=== PATIENT | male | born 1985 | race Caucasian/White ===

== ENCOUNTER 2018-01-23 09:08 | Emergency (ER) | payer SELFPAY ==
--- NOTE | 2018-01-23 09:58 | EDM.PDOC ---
ED HPI GENERAL MEDICAL PROBLEM - General Chief Complaint: ENT Problem Stated Complaint: SINUS INFECTION/TOOTHACHE Time Seen by Provider: 01/23/18 09:27 Source of Information: Reports: Patient History Limitations: Reports: No Limitations - History of Present Illness INITIAL COMMENTS - FREE TEXT/NARRATIVE: The patient presents with right upper tooth pain. This has been going on for a few months. He just moved here from [place]. He was going to get that tooth pulled but he moved here and he now does not have dental insurance. He is now smelling a foul odor and having some pressure in the right side of his face. He has no fever but he does not feel right. 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 Right Upper Oral/Mouth Pain Score (Numeric/FACES): 5 - Related Data Allergies Allergy/AdvReac Type Severity Reaction Status Date / Time No Known Allergies Allergy Verified 01/23/18 09:18 Home Meds: Home Meds Penicillin V Potassium 500 mg PO Q6HR #40 tab 01/23/18 [Rx] Past Medical History - Past Surgical History Musculoskeletal Surgical History: Reports: Arthroscopic Knee Other Musculoskeletal Surgeries/Procedures:: hip surgery Social & Family History - Tobacco Use Smoking Status *Q: Current Every Day Smoker Years of Tobacco use: 15 Packs/Tins Daily: 1 - Caffeine Use Caffeine Use: Reports: Coffee - Recreational Drug Use Recreational Drug Use: No ED ROS ENT - Review of Systems Review Of Systems: See Below Constitutional: Reports: No Symptoms HEENT: Reports: Dental Pain Respiratory: Reports: No Symptoms Cardiovascular: Reports: No Symptoms Endocrine: Reports: No Symptoms GI/Abdominal: Reports: No Symptoms : Reports: No Symptoms ED EXAM, ENT - Physical Exam Exam: See Below Exam Limited By: No Limitations General Appearance: Alert, No Apparent Distress Ears: Normal External Exam Nose: Normal Inspection Mouth/Throat: Other (Pain upon palpation with erythema and edema to the right upper gum line) Course - Vital Signs Last Recorded V/S: Last Vital Signs Temp 99 F 01/23/18 09:19 Pulse 77 01/23/18 09:19 Resp 12 01/23/18 09:19 BP 141/98 H 06/04/18 09:19 Pulse Ox 100 01/23/18 09:19 Departure - Departure Time of Disposition: 10:00 Disposition: Home, Self-Care 01 Condition: Good Clinical Impression: Dental abscess - Discharge Information Prescriptions: Penicillin V Potassium 500 mg PO Q6HR #40 tab Referrals: PCP,None [Primary Care Provider] - Additional Instructions: Take the antibiotic as prescribed. Take motrin or tylenol for pain. Try to follow up with a dentist in town for definitive treatment such as a tooth extraction.
== END 2018-01-23 10:10 | disposition home or self-care (01) ==
LOC: JD.ED 09:08
DX: K04.7 Periapical abscess without sinus (principal); F17.210 Nicotine dependence, cigarettes, uncomplicated
CPT/HCPCS: 99283

== ENCOUNTER 2018-02-08 13:27 | Emergency (ER) | payer SELFPAY ==
--- NOTE | 2018-02-08 14:03 | EDM.PDOC ---
ED HPI GENERAL MEDICAL PROBLEM - General Chief Complaint: ENT Problem Stated Complaint: TOOTH ABCESS Time Seen by Provider: 02/08/18 13:42 Source of Information: Reports: Patient History Limitations: Reports: No Limitations - History of Present Illness INITIAL COMMENTS - FREE TEXT/NARRATIVE: Patient is a 32-year-old male presents ED complaining of right sided maxillofacial discomfort with increased nasal secretions. Nasal secretions have a followed are present. Occasional blood present. Complains of pain to the #2 tooth worse with chewing on the affected side. He was evaluated in the ED approximately 15 days ago diagnosed with tooth abscess placed on penicillin 10 day course. States symptoms have not drastically improved. Tooth pain has been going on for a few months. He just moved here from [place]. He was going to get that tooth pulled but he moved here and he now does not have dental insurance. He is now smelling a foul odor and having some pressure in the right side of his face. He has no fever but he does not feel right. He's been utilizing a 90 pot with increased nasal secretions noted. There's been no documented fever. He's been eating and drinking okay. 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 Smokes one pack of cigarettes per day. Alcohol use 2 times a week. No recreational drug use. No additional past medical history. Currently taking no other medications. Surgical history noncontributory. Right Oral/Mouth Pain Score (Numeric/FACES): 5 - Related Data Allergies Allergy/AdvReac Type Severity Reaction Status Date / Time No Known Allergies Allergy Verified 02/08/18 13:39 Home Meds: Home Meds Amoxicillin/Potassium Clav [Augmentin 875-125 Tablet] 1 each PO BID #20 tablet 02/08/18 [Rx] Past Medical History - Past Surgical History Musculoskeletal Surgical History: Reports: Arthroscopic Knee Other Musculoskeletal Surgeries/Procedures:: hip surgery Social & Family History - Caffeine Use Caffeine Use: Reports: Coffee ED ROS ENT - Review of Systems Review Of Systems: ROS reveals no pertinent complaints other than HPI. ED EXAM, ENT - Physical Exam Exam: See Below Exam Limited By: No Limitations General Appearance: Alert, WD/WN, No Apparent Distress Ears: Hearing Grossly Normal Nose: Normal Inspection, Normal Mucousa, No Blood Mouth/Throat: Normal Inspection, Normal Oropharynx, Other (Pain noted to the #2 tooth with direct pressure. Large portion of the tooth is missing after a cavity fell out. Gumline swelling.). No: Throat Pain, Throat Swelling, Tongue Swelling, Tonsillar Erythema, Tonsillar Exudates, Tonsillar Swelling, Trismus, Uvular Deviation Head: Atraumatic, Normocephalic Neck: Normal Inspection, Supple Respiratory/Chest: No Respiratory Distress, Lungs Clear, Normal Breath Sounds, No Accessory Muscle Use Cardiovascular: Normal Peripheral Pulses, Regular Rate, Rhythm Extremities: Normal Inspection Neurological: Alert, Oriented, CN II-XII Intact, Normal Cognition, No Motor/ Sensory Deficits Psychiatric: Normal Affect, Normal Mood Skin: Warm, Dry, Intact, Normal Color Course - Vital Signs Last Recorded V/S: Last Vital Signs Temp 99.2 F 02/08/18 13:37 Pulse 97 02/08/18 13:37 Resp 16 02/08/18 13:37 BP 137/108 H 02/08/18 13:37 Pulse Ox 97 02/08/18 13:37 - Orders/Labs/Meds Meds: Medications Discontinued Medications Generic Name Dose Route Start Last Admin Trade Name Maria Isabel PRN Reason Stop Dose Admin Amoxicillin/Clavulanate Potassium 1 tab 02/08/18 14:46 Augmentin 875 Mg/125 Mg PO 02/08/18 14:47 ONETIME ONE - Re-Assessments/Exams Free Text/Narrative Re-Assessment/Exam: Will order CT of the maxillofacial bones and sinuses. CT of the maxillofacial bones and sinuses revealed increased fluid within the right maxillary sinus with what appears to be base of the tooth protruding into the sinus cavity. Suspect this is the cause of infection. Final interpretation is pending. Previously on pen [email or web address] will start the patient on augmentin with instructions to see a oral surgeon FRANCISCO for definitive treatment. Augmentin ordered. Discharge instructions as documented. Departure - Departure Time of Disposition: 14:44 Disposition: Home, Self-Care 01 Condition: Good Clinical Impression: Dental abscess Sinusitis Qualifiers: Sinusitis location: maxillary Chronicity: subacute Qualified Code(s): J01.00 - Acute maxillary sinusitis, unspecified - Discharge Information Prescriptions: Amoxicillin/Potassium Clav [Augmentin 875-125 Tablet] 1 each PO BID #20 tablet Instructions: Sinusitis, Adult, [id number], Dental Abscess Referrals: PCP,None [Primary Care Provider] - Forms: ED Department Discharge Additional Instructions: Take the full course of Augmentin as prescribed. Utilize a [id number] probiotic as well. Take Tylenol and ibuprofen in alternating fashion for pain. Call and make an appointment with a oral surgeon or dentist for definitive treatment. The chronic sinusitis will not improve without pulling the tooth. Return to the ED if you develop any new or worsening symptoms.
[2018-02-08] MEDS ORDERED: Amoxicillin/Clavulanate K 875-125 MG Tab PO ONE (14:46)
--- NOTE | 2018-02-08 14:51 | CT ---
Paranasal sinuses Technique: Multiple axial sections through the paranasal sinuses were obtained. Reconstructed coronal and sagittal images were obtained. Intravenous contrast not utilized. Findings: Near-complete opacification of the right maxillary sinus is seen with probable small amount of fluid within this sinus. Scattered mucosal thickening is seen within the ethmoid sinuses. Minimal mucosal thickening is seen within the sphenoid and frontal sinuses. Minimal mucosal thickening is noted within the left maxillary sinus. No acute bony abnormality is seen. Impression: 1. Sinus findings as noted above. Small amount of fluid suggested within the right maxillary sinus raising the possibility of acute sinusitis. Diagnostic code #3
== END 2018-02-08 14:50 | disposition home or self-care (01) ==
LOC: JD.ED 13:27
DX: K04.7 Periapical abscess without sinus (principal); J01.00 Acute maxillary sinusitis, unspecified
CPT/HCPCS: 70486; 99284; A9270; 99283

== ENCOUNTER 2018-05-15 07:53 | Emergency (ER) | payer BC, OTHER ==
[2018-05-15] MEDS ORDERED: LORazepam 2 MG/ML SDV IVPUSH ONE (08:25)
[2018-05-15] MEDS ORDERED: Sodium Chloride 0.9% 10 ML Syringe FLUSH PRN (08:25)
[2018-05-15] MEDS ORDERED: Sodium Chloride 0.9% 1,000 ML IV SCH (08:30)
[2018-05-15] MEDS ORDERED: LORazepam 1 MG Tab PO ONE (09:21)
--- NOTE | 2018-05-15 09:21 | EDM.PDOC ---
ED HPI GENERAL MEDICAL PROBLEM - General Chief Complaint: Drug or Alcohol Abuse Stated Complaint: HEART PALPITATION Time Seen by Provider: 05/15/18 08:09 Source of Information: Reports: Patient, RN Notes Reviewed - History of Present Illness INITIAL COMMENTS - FREE TEXT/NARRATIVE: 32-year-old male comes in with anterior chest tightness, palpitations. He does admit to doing meth last evening into the early hours of this morning and also did drink about a pint of rum. He does drink alcohol regularly so that was nothing different for him but states that he has not "done meth before.. He has had difficulty getting to sleep. He states his heart is "pounding and also noticing some irregularity type palpitations. He does not feel short of breath. He denies abdominal pain nausea or vomiting. He has no known history for hypertension diabetes or known heart disease. Chest Pain Score (Numeric/FACES): 3 - Related Data Allergies Allergy/AdvReac Type Severity Reaction Status Date / Time No Known Allergies Allergy Verified 05/15/18 08:05 Home Meds: Home Meds . [No Known Home Meds] 05/15/18 [History] Past Medical History - Past Surgical History Musculoskeletal Surgical History: Reports: Arthroscopic Knee Other Musculoskeletal Surgeries/Procedures:: hip surgery Social & Family History - Tobacco Use Smoking Status *Q: Current Every Day Smoker Years of Tobacco use: 14 Packs/Tins Daily: 1 - Caffeine Use Caffeine Use: Reports: None - Recreational Drug Use Recreational Drug Use: Yes Drug Use in Last 12 Months: Yes Recreational Drug Type: Reports: Methamphetamine ED ROS GENERAL - Review of Systems Review Of Systems: See Below Constitutional: Denies: Fever, Chills, Diaphoresis HEENT: Reports: No Symptoms Respiratory: Reports: Shortness of Breath (Mild). Denies: Cough, Hemoptysis Cardiovascular: Reports: Chest Pain (Mild anterior tightness) GI/Abdominal: Denies: Abdominal Pain, Nausea, Vomiting Musculoskeletal: Denies: Neck Pain, Shoulder Pain, Arm Pain, Back Pain Skin: Reports: No Symptoms Neurological: Reports: Dizziness. Denies: Numbness (Mild), Tingling ED EXAM, GENERAL - Physical Exam Exam: See Below General Appearance: Alert, Anxious Eye Exam: Bilateral Eye: PERRL Throat/Mouth: Normal Inspection, Normal Oropharynx Head: Atraumatic. No: Facial Swelling Neck: Supple, Full Range of Motion Respiratory/Chest: No Respiratory Distress, Lungs Clear, Normal Breath Sounds Cardiovascular: Regular Rate, Rhythm GI/Abdominal: Soft, Non-Tender Back Exam: No: CVA Tenderness (L), CVA Tenderness (R) Extremities: Normal Inspection, Normal Range of Motion. No: Pedal Edema, Leg Pain Neurological: Alert, Oriented, No Motor/Sensory Deficits Skin Exam: Warm, Dry, Normal Color EKG INTERPRETATION EKG Date: 05/15/18 Rhythm: NSR [place]: Normal P-Wave: Present QRS: Other (Multiple PVCs noted) ST-T: Normal Course - Vital Signs Last Recorded V/S: Last Vital Signs Temp 99.5 F 05/15/18 08:01 Pulse 106 H 05/15/18 09:30 Resp 23 H 05/15/18 09:30 BP 161/108 H 05/15/18 09:30 Pulse Ox 99 05/15/18 09:30 - Orders/Labs/Meds Orders: Active Orders 24 hr Category Date Time Status EKG 12 Lead [EKG Documentation Completion] [RC] STAT Care 05/15/18 08:24 Active Peripheral IV Care [RC] . DIRECTED Care 05/15/18 08:26 Active Peripheral IV Insertion Adult [OM.PC] Stat Oth 05/15/18 08:25 Ordered Labs: Laboratory Tests 05/15/18 05/15/18 Range/Units 08:30 08:30 WBC 9.52 H (4.23-9.07) K/mm3 RBC 4.67 (4.63-6.08) M/mm3 Hgb 15.0 (13.7-17.5) gm/L Hct 42.3 (40.1-51.0) % MCV 90.6 (79.0-92.2) fl MCH 32.1 (25.7-32.2) pg MCHC 35.5 (32.2-35.5) g/dl RDW Std Deviation 43.2 (35.1-43.9) fL Plt Count 257 (163-337) K/mm3 MPV 10.7 (9.4-12.3) fl Neut % (Auto) 58.7 (34.0-67.9) % Lymph % (Auto) 32.2 (21.8-53.1) % [place] % (Auto) 7.4 (5.3-12.2) % Eos % (Auto) 0.9 (0.8-7.0) Baso % (Auto) 0.7 (0.1-1.2) % Neut # (Auto) 5.58 H (1.78-5.38) K/mm3 Lymph # (Auto) 3.07 (1.32-3.57) K/mm3 [place] # (Auto) 0.70 (0.30-0.82) K/mm3 Eos # (Auto) 0.09 (0.04-0.54) K/mm3 Baso # (Auto) 0.07 (0.01-0.08) K/mm3 Sodium 136 (136-145) mEq/L Potassium 3.4 L (3.5-5.1) mEq/L Chloride 99 (98-107) mEq/L Carbon Dioxide 24 (21-32) mEq/L Anion Gap 16.4 H (5-15) BUN 9 (7-18) mg/dL Creatinine 0.9 (0.7-1.3) mg/dL Est Cr Clr Drug Dosing 122.79 mL/min Estimated GFR (MDRD) > 60 (>60) mL/min BUN/Creatinine Ratio 10.0 L (14-18) Glucose 86 (74-106) mg/dL Calcium 9.0 (8.5-10.1) mg/dL Total Bilirubin 0.6 (0.2-1.0) mg/dL AST 82 H (15-37) U/L ALT 107 H (16-63) U/L Alkaline Phosphatase 57 (46-116) U/L Total Protein 7.6 (6.4-8.2) g/dl Albumin 4.3 (3.4-5.0) g/dl Globulin 3.3 gm/dL Albumin/Globulin Ratio 1.3 (1-2) Meds: Medications Discontinued Medications Generic Name Dose Route Start Last Admin Trade Name Freq PRN Reason Stop Dose Admin Sodium Chloride 1,000 mls @ 999 mls/hr 05/15/18 08:30 05/15/18 08:35 Normal Saline IV 999 mls/hr ONETIME RENATE Administration Lorazepam 1 mg 05/15/18 08:25 05/15/18 08:38 Ativan IVPUSH 05/15/18 08:26 Not Given ONETIME ONE Lorazepam 1 mg 05/15/18 09:21 05/15/18 09:31 Ativan PO 05/15/18 09:22 1 mg ONETIME ONE Administration Sodium Chloride 10 ml 05/15/18 08:25 05/15/18 08:35 Saline Flush FLUSH 10 ml ASDIRECTED PRN Administration Keep Vein Open - Re-Assessments/Exams Free Text/Narrative Re-Assessment/Exam: 05/15/18 14:25 Patient did have some continued PVCs initially but those did subside with rest time in 1 L IV fluid. Labs did come back relatively normal. He also much better after receiving the 1 L of IV fluid, send 1 mg Ativan home with him to take once he does get home. He is driving so this was withheld while here in the emergency department. Departure - Departure Time of Disposition: :18 Disposition: Home, Self-Care 01 Condition: Fair Clinical Impression: Heart palpitations Instructions: Palpitations, [id number] Referrals: PCP,None [Primary Care Provider] - Additional Instructions: We are sending 1 mg Ativan home with you take once you do get home, then no driving recommended for the next 8 hours, continue to drink plenty of water today to restore hydration. Follow-up clinic as needed, return to ED as needed - My Orders Last 24 Hours: My Active Orders 05/15/18 08:24 EKG 12 Lead [EKG Documentation Completion] [RC] STAT 05/15/18 08:25 Peripheral IV Insertion Adult [OM.PC] Stat 05/15/18 08:26 Peripheral IV Care [RC] . DIRECTED - Assessment/Plan Last 24 Hours: My Active Orders 05/15/18 08:24 EKG 12 Lead [EKG Documentation Completion] [RC] STAT 05/15/18 08:25 Peripheral IV Insertion Adult [OM.PC] Stat 05/15/18 08:26 Peripheral IV Care [RC] . DIRECTED
== END 2018-05-15 09:34 | disposition home or self-care (01) ==
LOC: JD.ED 07:53
DX: R00.2 Palpitations (principal); F17.210 Nicotine dependence, cigarettes, uncomplicated
CPT/HCPCS: 36415; 80053; 85025; 93005; 96360; 99285; A9270; J7040; J7050; 93010; 99284-25

== ENCOUNTER 2019-08-23 01:04 | Emergency (ER) | payer BC ==
--- NOTE | 2019-08-23 01:10 | EDM.PDOC ---
ED HPI GENERAL MEDICAL PROBLEM - General Chief Complaint: Neurological Problem Stated Complaint: [facility] Time Seen by Provider: 08/23/19 01:10 - History of Present Illness INITIAL COMMENTS - FREE TEXT/NARRATIVE: 33-year-old male presents the emergency room brought in by EMS after having what sounds like a seizure-like activity at home. This occurred just prior to arrival patient has no history of seizure problems in the past. However he was diagnosed with a subarachnoid cyst many years ago and he has not had follow-up on this. He was told he could cause him problems down the road. Patient denies any drugs or alcohol. Patient states he was feeling pretty good today. Patient denies any other medical problems or conditions. Patient's described it as the patient was doing some on his phone while lying down in bed and then his arm straightened out became quite rigid his eyes rolled back and he had some generalized shaking and he turned purple, this lasted about a minute resolved on its own he was postictal for a time no loss of bowel or bladder control. - Related Data Allergies Allergy/AdvReac Type Severity Reaction Status Date / Time avocado Allergy Itching Verified 08/23/19 01:11 watermelon Allergy Itching Verified 08/23/19 01:11 Home Meds: Home Meds buPROPion [buPROPion XL] 300 mg PO DAILY 08/23/19 [History] levETIRAcetam [Roweepra] 500 mg PO Q12H #60 tablet 08/23/19 [Rx] Past Medical History - Past Surgical History Musculoskeletal Surgical History: Reports: Arthroscopic Knee Other Musculoskeletal Surgeries/Procedures:: hip surgery Social & Family History - Caffeine Use Caffeine Use: Reports: None ED ROS GENERAL - Review of Systems Review Of Systems: See Below Constitutional: Reports: No Symptoms HEENT: Reports: No Symptoms Respiratory: Reports: No Symptoms Cardiovascular: Reports: No Symptoms Endocrine: Reports: No Symptoms GI/Abdominal: Reports: No Symptoms : Reports: No Symptoms Musculoskeletal: Reports: No Symptoms Skin: Reports: No Symptoms Neurological: Reports: No Symptoms Psychiatric: Reports: No Symptoms - Physical Exam Exam: See Below Exam Limited By: No Limitations General Appearance: Alert, No Apparent Distress, Other EKG INTERPRETATION EKG Date: 08/23/19 Rhythm: NSR Rate (Beats/Min): 101 Twain: LAD-Left Twain Deviation P-Wave: Present QRS: Other (Intraventricular conduction delay) ST-T: Normal (To be noted string she is not a good look at them) QT: Normal Comparison: NA - No Prior EKG EKG Interpretation Comments: Abnormal Course - Vital Signs Last Recorded V/S: Last Vital Signs Temp 36.8 C 08/23/19 01:07 Pulse 117 H 08/23/19 02:11 Resp 19 08/23/19 01:07 BP 141/98 H 08/23/19 02:11 Pulse Ox 96 08/23/19 01:07 - Orders/Labs/Meds Orders: Active Orders 24 hr Category Date Time Status EKG 12 Lead [EKG Documentation Completion] [RC] STAT Care 08/23/19 02:43 Active EKG Documentation Completion [RC] STAT Care 08/23/19 01:12 Active Head wo Cont [CT] Stat Exams 08/23/19 01:13 Taken Lactated Ringers [Ringers, Lactated] 1,000 ml Med 08/23/19 02:00 Active IV ASDIRECTED Medication Orders Lactated Ringer's (Ringers, Lactated) 1,000 mls @ 125 mls/hr IV ASDIRECTED RENATE Last Admin: 08/23/19 01:57 Dose: 125 mls/hr Labs: Laboratory Tests 08/23/19 08/23/19 08/23/19 Range/Units 01:25 01:25 02:52 WBC 10.45 H (4.23-9.07) K/mm3 RBC 4.27 L (4.63-6.08) M/mm3 Hgb 13.5 L D (13.7-17.5) gm/dl Hct 39.0 L (40.1-51.0) % MCV 91.3 (79.0-92.2) fl MCH 31.6 (25.7-32.2) pg MCHC 34.6 (32.2-35.5) g/dl RDW Std Deviation 42.3 (35.1-43.9) fL Plt Count 303 (163-337) K/mm3 MPV 10.8 (9.4-12.3) fl Neutrophils % (Manual) 59 (40-60) % Band Neutrophils % 0 (0-10) % Lymphocytes % (Manual) 30 (20-40) % Atypical Lymphs % 0 % Monocytes % (Manual) 8 (2-10) % Eosinophils % (Manual) 3 (0.8-7.0) % Basophils % (Manual) 0 L (0.2-1.2) Platelet Estimate Adequate RBC Morph Comment Normal Sodium 140 (136-145) mEq/L Potassium 4.0 (3.5-5.1) mEq/L Chloride 104 (98-107) mEq/L Carbon Dioxide 26 (21-32) mEq/L Anion Gap 14.0 (5-15) BUN 23 H (7-18) mg/dL Creatinine 1.0 (0.7-1.3) mg/dL Est Cr Clr Drug Dosing 109.50 mL/min Estimated GFR (MDRD) > 60 (>60) mL/min BUN/Creatinine Ratio 23.0 H (14-18) Glucose 118 H (74-106) mg/dL Calcium 8.3 L (8.5-10.1) mg/dL Total Bilirubin 0.3 (0.2-1.0) mg/dL AST 20 (15-37) U/L ALT 35 (16-63) U/L Alkaline Phosphatase 61 (46-116) U/L Total Protein 6.8 (6.4-8.2) g/dl Albumin 3.6 (3.4-5.0) g/dl Globulin 3.2 gm/dL Albumin/Globulin Ratio 1.1 (1-2) Urine Color Yellow (Yellow) Urine Appearance Slt cloudy H (Clear) Urine pH 6.0 (5.0-8.0) Ur Specific [place] 1.025 (1.005-1.030) Urine Protein Negative (Negative) Urine Glucose (UA) Negative (Negative) Urine Ketones Negative (Negative) Urine Occult Blood Negative (Negative) Urine Nitrite Negative (Negative) Urine Bilirubin Negative (Negative) Urine Urobilinogen 0.2 (0.2-1.0) Ur Leukocyte Esterase Negative (Negative) Urine RBC 0-5 (0-5) /hpf Urine WBC 0-5 (0-5) /hpf Ur Epithelial Cells Not seen (0-5) /hpf Urine Bacteria Not seen (FEW) /hpf Urine Mucus Not seen (FEW) /hpf Urine Opiates Screen (YIJXAN=620) Ur Buprenorphine Scrn (CUTOFF=10) Ur Oxycodone Screen (OTD9EW=421) Urine Methadone Screen (EUT3FJ=279) Ur Propoxyphene Screen (IMXSYX=702) Ur Barbiturates Screen (RZJKJE=678) Ur Tricyclics Screen (HURLSO=686) Ur Phencyclidine Scrn (CUTOFF=25) Ur Amphetamine Screen (FHHQWY=135) U Methamphetamines Scrn (RPPDTP=686) U Benzodiazepines Scrn (AKFLHU=802) U Cocaine Metab Screen (LGDHLG=714) U Marijuana (THC) Screen (CUTOFF=50) Ethyl Alcohol 0.00 (0.00) gm% 08/23/19 Range/Units 02:52 WBC (4.23-9.07) K/mm3 RBC (4.63-6.08) M/mm3 Hgb (13.7-17.5) gm/dl Hct (40.1-51.0) % MCV (79.0-92.2) fl MCH (25.7-32.2) pg MCHC (32.2-35.5) g/dl RDW Std Deviation (35.1-43.9) fL Plt Count (163-337) K/mm3 MPV (9.4-12.3) fl Neutrophils % (Manual) (40-60) % Band Neutrophils % (0-10) % Lymphocytes % (Manual) (20-40) % Atypical Lymphs % % Monocytes % (Manual) (2-10) % Eosinophils % (Manual) (0.8-7.0) % Basophils % (Manual) (0.2-1.2) Platelet Estimate RBC Morph Comment Sodium (136-145) mEq/L Potassium (3.5-5.1) mEq/L Chloride (98-107) mEq/L Carbon Dioxide (21-32) mEq/L Anion Gap (5-15) BUN (7-18) mg/dL Creatinine (0.7-1.3) mg/dL Est Cr Clr Drug Dosing mL/min Estimated GFR (MDRD) (>60) mL/min BUN/Creatinine Ratio (14-18) Glucose (74-106) mg/dL Calcium (8.5-10.1) mg/dL Total Bilirubin (0.2-1.0) mg/dL AST (15-37) U/L ALT (16-63) U/L Alkaline Phosphatase (46-116) U/L Total Protein (6.4-8.2) g/dl Albumin (3.4-5.0) g/dl Globulin gm/dL Albumin/Globulin Ratio (1-2) Urine Color (Yellow) Urine Appearance (Clear) Urine pH (5.0-8.0) Ur Specific [place] (1.005-1.030) Urine Protein (Negative) Urine Glucose (UA) (Negative) Urine Ketones (Negative) Urine Occult Blood (Negative) Urine Nitrite (Negative) Urine Bilirubin (Negative) Urine Urobilinogen (0.2-1.0) Ur Leukocyte Esterase (Negative) Urine RBC (0-5) /hpf Urine WBC (0-5) /hpf Ur Epithelial Cells (0-5) /hpf Urine Bacteria (FEW) /hpf Urine Mucus (FEW) /hpf Urine Opiates Screen Negative (EXKTRI=762) Ur Buprenorphine Scrn Negative (CUTOFF=10) Ur Oxycodone Screen Negative (FXB1CC=649) Urine Methadone Screen Negative (XVS8WI=326) Ur Propoxyphene Screen Negative (UOAGSS=890) Ur Barbiturates Screen Negative (CDFYJR=824) Ur Tricyclics Screen Negative (TYEVZJ=657) Ur Phencyclidine Scrn Negative (CUTOFF=25) Ur Amphetamine Screen Negative (ZLJDUT=120) U Methamphetamines Scrn Negative (ULRPZF=088) U Benzodiazepines Scrn Negative (NTJHTM=068) U Cocaine Metab Screen Negative (IXCABE=735) U Marijuana (THC) Screen Negative (CUTOFF=50) Ethyl Alcohol (0.00) gm% Meds: Medications Generic Name Dose Route Start Last Admin Trade Name Freq PRN Reason Stop Dose Admin Lactated Ringer's 1,000 mls @ 125 mls/hr 08/23/19 02:00 08/23/19 01:57 Ringers, Lactated IV 125 mls/hr ASDIRECTED RENATE Administration Discontinued Medications Generic Name Dose Route Start Last Admin Trade Name Freq PRN Reason Stop Dose Admin Levetiracetam 1,000 mg/ Sodium 110 mls @ 400 mls/hr 08/23/19 05:20 08/23/19 05:31 Chloride IV 08/23/19 05:34 400 mls/hr ONETIME ONE Administration Lorazepam 1 mg 08/23/19 01:14 08/23/19 01:38 Ativan IVPUSH 08/23/19 01:15 1 mg ONETIME ONE Administration Metoprolol Tartrate 5 mg 08/23/19 01:50 08/23/19 02:11 Lopressor IVPUSH 08/23/19 01:51 5 mg ONETIME ONE Administration - Re-Assessments/Exams Free Text/Narrative Re-Assessment/Exam: 08/23/19 05:57 The patient has done well in her emergency department he received 1 mg of Ativan and has not had any more seizures. Patient's case was discussed with Dr. Rashid neurologist at [facility] in [place] and he recommended actually loading the mumtaz up with Keppra thousand milligrams and then starting 500 mg twice daily he would like to see the patient in 4 to 6 weeks and request that we get a MRI of the brain with and without contrast. I did discuss the arachnoid cyst seen on the CT with Dr. Rashid. The patient has a known for quite some time of this arachnoid cyst and has been told in the past that it could cause some trouble for him. I have discussed discharge plans with the patient and he agrees to follow-up and take the medications as directed. Departure - Departure Time of Disposition: 05:59 Disposition: Home, Self-Care 01 Clinical Impression: Generalized convulsive seizures - Discharge Information Prescriptions: levETIRAcetam [Roweepra] 500 mg PO Q12H #60 tablet Referrals: Dona Pedraza MD [Primary Care Provider] - Forms: ED Department Discharge Additional Instructions: Return to the emergency room with any questions problems or worsening symptoms. Take the Keppra 1 twice daily as directed I given you enough for 1 month +1 refill. Follow-up with neurology at [facility] in [place]. I discussed your case with Dr. Rashid he recommends you get seen in 4 to 6 weeks. You will be notified from this hospital on what time to come back for your MRI. Do not drive until you are approved to do so. Sepsis Event Note - Focused Exam Vital Signs: Vital Signs Temp Pulse Pulse Resp BP BP Pulse Ox 08/23/19 02:11 117 H 141/98 H 08/23/19 01:07 36.8 C 120 H 19 143/91 H 96 Date Exam was Performed: 08/23/19 Time Exam was Performed: 05:57 - My Orders Last 24 Hours: My Active Orders 08/23/19 01:12 EKG Documentation Completion [RC] STAT 08/23/19 01:13 Head wo Cont [CT] Stat 08/23/19 02:00 Lactated Ringers [Ringers, Lactated] 1,000 ml IV ASDIRECTED 08/23/19 02:43 EKG 12 Lead [EKG Documentation Completion] [RC] STAT - Assessment/Plan Last 24 Hours: My Active Orders 08/23/19 01:12 EKG Documentation Completion [RC] STAT 08/23/19 01:13 Head wo Cont [CT] Stat 08/23/19 02:00 Lactated Ringers [Ringers, Lactated] 1,000 ml IV ASDIRECTED 08/23/19 02:43 EKG 12 Lead [EKG Documentation Completion] [RC] STAT
[2019-08-23] MEDS ORDERED: LORazepam 2 MG/ML SDV IVPUSH ONE (01:14)
[2019-08-23] MEDS ORDERED: Metoprolol Tartrate 5 MG/5 ML SDV IVPUSH ONE (01:50)
[2019-08-23] MEDS ORDERED: Lactated Ringers 1,000 ML IV SCH (02:00)
[2019-08-23] MEDS ORDERED: levETIRAcetam 1,000 MG in Sodium Chloride 0.9% 100 ML IV ONE (05:20)
--- NOTE | 2019-08-23 07:25 | CT ---
Head CT Technique: Multiple axial sections through the brain were obtained. Intravenous contrast was not utilized. Comparison: No prior intracranial imaging is available. Findings: Low density lesion is noted within the anterior left temporal fossa measuring 5.1 cm x 3.6 cm. This has low density of CSF and is felt compatible with arachnoid cyst. Ventricles along with basal cisterns and sulci over the convexities are within normal limits for the patient's age. No abnormal parenchymal densities are seen. No evidence of intracranial hemorrhage. No midline shift or mass effect is seen. Visualized mastoid sinuses show nothing acute. Visualized paranasal sinuses show nothing acute. No acute calvarial abnormality is appreciated. Impression: 1. Low density finding within the anterior left temporal fossa compatible with retention cyst as measured above. This is usually considered a normal variant. 2. No acute intracranial abnormality is identified. Diagnostic code #2 This report was dictated in [place] Standard Time I agree with preliminary report from [facility], finalized on 08/23/19, 4:04 AM Central Time
== END 2019-08-23 06:15 | disposition home or self-care (01) ==
LOC: JD.ED 01:04
DX: R56.9 Unspecified convulsions (principal); Z91.018 Allergy to other foods; Z79.899 Other long term (current) drug therapy
CPT/HCPCS: 36415; 70450; 80053; 80306; 80320; 81001; 85007; 85027; 93005; 96361; 96365; 96375; 99285; J1953; J2060; J3490; J7050; J7120; 93010; 99281; G0480

== ENCOUNTER 2019-11-19 12:19 | Emergency (ER) | payer BC ==
--- NOTE | 2019-11-19 13:18 | EDM.PDOC ---
ED HPI GENERAL MEDICAL PROBLEM - General Chief Complaint: Respiratory Problem Stated Complaint: FEVER/HEADACHE/STIFF NECK Time Seen by Provider: 11/19/19 12:39 Source of Information: Reports: Patient History Limitations: Reports: No Limitations - History of Present Illness INITIAL COMMENTS - FREE TEXT/NARRATIVE: Mr. Celis is a very pleasant 34-year-old man with a past medical history significant for a possible seizure disorder, suffering what was likely a single generalized tonic-clonic seizure in August. He was seen in this ED and started on Keppra. He then followed up with a Neurologist in [place], however , because he was already on Keppra, no EEG was performed. An MRI of his brain was unremarkable. The patient remains on Keppra. The patient has a history of polysubstance abuse, however, and has been on high-dose kratom for many years; please note that high-dose kratom can itself cause seizures. The patient now presents to the ED stating that he developed a fever and headache since , 11/15/2019, with a T-max of 104.5 degrees on Tuesday, . He has had diaphoresis when his fever breaks. He states that he developed a stiff neck, left hip pain, and bilateral knee pain on Tuesday, 2019 or 11/17/2019. He states that he has been taking Aleve, which has helped. The patient states that both he and his had transient tingling numbness of his tongue last week, but none since. Otherwise, he denies recent rhinorrhea, sinus pressure, sore throat, ear pain, cough, dyspnea, chest pain, palpitations , nausea, vomiting, constipation, diarrhea, abdominal pain, urinary symptoms, recent weight gain or weight loss, recent bloody bowel movements or black bowel movements, or rashes. The patient is concerned, because he was exposed to a coworker who tested positive for COVID-19. He states that he went to the walk-in clinic on Tuesday , 11/16/2019, where he was tested for both influenza and COVID-19, both of which returned negative. The patient states that he took acetaminophen this morning. Here in the ED, the patient is found to be hemodynamically stable, slightly hypothermic at 36 degrees, saturating 98% on room air. The patient's PCP is Dona Pedraza NP. He does not recall the name of his neurologist, at [facility]. He received an influenza vaccine this season. 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) Neurological History: Reports: Seizure (one, in Aug 2019) Psychiatric History: Reports: Addiction (polysubstance) - Past Surgical History Musculoskeletal Surgical History: Reports: Arthroscopic Knee (right), Other ( See Below) (Left hip pinning) Social & Family History - Family History Cardiac: Reports: Heart Failure Neurological: Reports: CVA, Seizure, Other (See Below) Other Neurological Family History: father Brain tumor; brain CA; CVA at 59 - Tobacco Use Smoking Status *Q: Current Every Day Smoker Tobacco Use Within Last Twelve Months: Smokeless Tobacco (Chews 4 packets per day) Years of Tobacco use: 15 Packs/Tins Daily: 0.1 Packs/Tins Daily Comment: Down from 1 ppd - Caffeine Use Caffeine Use: Reports: Coffee, Energy Drinks - Alcohol Use Alcohol Use History: Yes Date/Time of Last Drink Comment: Quit Jul 2019 due to excess - Recreational Drug Use Recreational Drug Use: Yes Drug Use in Last 12 Months: Yes Recreational Drug Type: Reports: Heroin (last injected early ), LSD (Acid) ( last took 2017), Marijuana/Hashish (last smoked Sep 2019), Methamphetamine ( last snorted Mar 2019), Psilocybin (Mushrooms) (last took 2017), Other (see below) (DMT = a plant-based psychedellic drug, last took 2017. Takes kratom 100 g/day.) - Living Situation & Occupation Living situation: Reports: , with Spouse, with Family (Daughter) Occupation: Employed (steel welder) ED ROS GENERAL - Review of Systems Review Of Systems: Comprehensive ROS is negative, except as noted in HPI. ED EXAM, GENERAL - Physical Exam Exam: See Below Exam Limited By: No Limitations General Appearance: Alert, WD/WN, No Apparent Distress Eye Exam: Bilateral Eye: EOMI, Normal Inspection Ears: Normal External Exam, Normal Canal, Hearing Grossly Normal, Normal TMs Nose: Normal Inspection, Normal Mucosa, No Blood Throat/Mouth: Normal Inspection, Normal Lips, Normal Teeth, Normal Gums, Normal Oropharynx, Normal Voice, No Airway Compromise Head: Atraumatic, Normocephalic Neck: Normal Inspection, Supple, Non-Tender, Full Range of Motion. No: Lymphadenopathy (L), Lymphadenopathy (R) Respiratory/Chest: No Respiratory Distress, Lungs Clear, Normal Breath Sounds, No Accessory Muscle Use Cardiovascular: Normal Peripheral Pulses, Regular Rate, Rhythm, No Edema, No Gallop, No JVD, No Murmur, No Rub Peripheral Pulses: 4+: Radial (L), Radial (R) GI/Abdominal: Normal Bowel Sounds, Soft, Non-Tender, No Organomegaly, No Distention, No Abnormal Bruit, No Mass (Male) Exam: Deferred Rectal (Males) Exam: Deferred Back Exam: Normal Inspection, Full Range of Motion, NT Extremities: Normal Inspection, Normal Range of Motion, No Pedal Edema, Normal Capillary Refill Neurological: Alert, Oriented, CN II-XII Intact, Normal Cognition, No Motor/ Sensory Deficits Psychiatric: Normal Affect Skin Exam: Warm, Dry, Intact, Normal Color, No Rash Course - Vital Signs Last Recorded V/S: Last Vital Signs Temp 37.0 C 11/19/19 17:49 Pulse 80 11/19/19 17:49 Resp 18 11/19/19 17:49 BP 126/86 11/19/19 17:49 Pulse Ox 98 11/19/19 17:49 - Orders/Labs/Meds Labs: Laboratory Tests 11/19/19 11/19/19 11/19/19 Range/Units 13:25 13:25 13:25 WBC 9.35 H (4.23-9.07) K/mm3 RBC 4.04 L (4.63-6.08) M/mm3 Hgb 12.8 L (13.7-17.5) gm/dl Hct 38.2 L (40.1-51.0) % MCV 94.6 H D (79.0-92.2) fl MCH 31.7 (25.7-32.2) pg MCHC 33.5 (32.2-35.5) g/dl RDW Std Deviation 44.0 H (35.1-43.9) fL Plt Count 270 (163-337) K/mm3 MPV 11.3 (9.4-12.3) fl Neutrophils % (Manual) 75 H (40-60) % Band Neutrophils % 0 (0-10) % Lymphocytes % (Manual) 10 L (20-40) % Atypical Lymphs % 0 % Monocytes % (Manual) 12 H (2-10) % Eosinophils % (Manual) 2 (0.8-7.0) % Basophils % (Manual) 1 (0.2-1.2) Platelet Estimate Adequate RBC Morph Comment Normal Sodium 140 (136-145) mEq/L Potassium 4.3 (3.5-5.1) mEq/L Chloride 103 (98-107) mEq/L Carbon Dioxide 26 (21-32) mEq/L Anion Gap 15.3 H (5-15) BUN 14 (7-18) mg/dL Creatinine 0.8 (0.7-1.3) mg/dL Est Cr Clr Drug Dosing 135.61 mL/min Estimated GFR (MDRD) > 60 (>60) mL/min BUN/Creatinine Ratio 17.5 (14-18) Glucose 102 (74-106) mg/dL Calcium 8.5 (8.5-10.1) mg/dL Magnesium 1.9 (1.8-2.4) mg/dl Ferritin 379 (26-388) ng/ml Total Bilirubin 0.4 (0.2-1.0) mg/dL AST 25 (15-37) U/L ALT 33 (16-63) U/L Alkaline Phosphatase 70 (46-116) U/L Lactate Dehydrogenase 174 (85-227) U/L C-Reactive Protein 22.3 H* (<1.0) mg/dL Total Protein 6.9 (6.4-8.2) g/dl Albumin 3.0 L (3.4-5.0) g/dl Globulin 3.9 gm/dL Albumin/Globulin Ratio 0.8 L (1-2) - Re-Assessments/Exams Free Text/Narrative Re-Assessment/Exam: 11/19/19 13:11 As above, the patient presents with 4 days of fever, a headache, a stiff neck, and arthralgias. No history of cough or diaphoresis, and the patient's oxygen saturation here in the ED is 98% on room air. Because the patient was exposed to a coworker who tested positive for COVID-19, the patient is concerned that he may be infected with that, or influenza, however, his symptoms are not really consistent with either disease, and he tested negative for both 2 days ago. His physical exam today is completely benign. I have ordered a work-up that includes blood work and a chest x-ray. 11/19/19 13:58 Two-view chest radiograph appears to be grossly normal. The cardiac silhouette is within normal limits. No pulmonary vascular congestion. No pleural effusions. No focal infiltrate. No pneumothorax. Formal read per the Radiologist pending. 11/19/19 17:31 The patient's CBC is remarkable for a WBC count slightly elevated at 9.35, but with 0% bandemia. His H/H is slightly decreased at 12.8/38.2, with the remainder of his CBC being unremarkable. His CMP is remarkable for an anion gap slightly elevated at 15.3, but with a bicarbonate normal at 26. The remainder of his CMP is unremarkable. His magnesium level is within normal limits at 1.9. His CRP is elevated at 22.3. His LDH is within normal limits at 174. His ferritin is within normal limits at 379. Based on the above, the patient is most likely suffering from a viral illness. COVID-19 is possible, but unlikely, and as above, the patient does not meet current criterion for testing. I will discharge him home. Departure - Departure Time of Disposition: 17:32 Disposition: Home, Self-Care 01 Condition: Good Clinical Impression: Viral illness - Discharge Information *PRESCRIPTION DRUG MONITORING PROGRAM REVIEWED*: Not Applicable *COPY OF PRESCRIPTION DRUG MONITORING REPORT IN PATIENT RICHI: Not Applicable Instructions: Viral Illness, Adult Referrals: Dona Pedraza MD [Primary Care Provider] - Forms: ED Department Discharge, ED Return to Work/School Form Additional Instructions: You were seen in the emergency room for 4 days of fever, headache, stiff neck, with pain in your left hip and both knees. Work-up in the ER included blood work and a chest x-ray, all of which was unremarkable. Based on your history, physical exam, and ER tests, you are most likely suffering from a viral illness. As discussed, it is possible that you have COVID-19, but unlikely. Unfortunately, you did not meet criterion to test for COVID-19. We recommend that you get plenty of rest and stay adequately hydrated. As discussed, the routine treatment of fever is no longer recommended, however, you may take [id number] Tylenol as needed for discomfort of fever. A note to return to work on 11/26/2019 has been provided. If any other problems, please do not hesitate to return to the ER. Sepsis Event Note - Evaluation Sepsis Screening Result: No Definite Risk - Focused Exam Vital Signs: Vital Signs Temp Pulse Resp BP Pulse Ox 11/19/19 17:49 37.0 C 80 18 126/86 98 11/19/19 12:29 36.0 C L 90 20 127/93 H 98 Date Exam was Performed: 11/19/19 Time Exam was Performed: 19:16
--- NOTE | 2019-11-19 14:08 | CR ---
Chest: 2 views of the chest were obtained. Comparison: No prior chest imaging is available. Heart size and mediastinum are normal. Lungs are clear. Bony structures are unremarkable for the patient's age. Impression: 1. Nothing acute is appreciated on 2 view chest x-ray. Diagnostic code #1 This report was dictated in MDT
== END 2019-11-19 17:48 | disposition home or self-care (01) ==
LOC: JD.ED 12:19
DX: B34.9 Viral infection, unspecified (principal); R56.9 Unspecified convulsions; F17.210 Nicotine dependence, cigarettes, uncomplicated; Z91.018 Allergy to other foods
CPT/HCPCS: 36415; 71046; 71046-26; 80053; 82728; 83615; 83735; 85007; 85027; 86140; 99284-25